=== PATIENT | female | born 1955 | race Caucasian/White ===

== ENCOUNTER 2017-04-19 10:53 | Day surgery (SDC) | payer BC ==
[~2017-04-19] VITALS: Ht 157.5 cm; Wt 84.5 kg
--- NOTE | ~2017-04-19 | OP ---
PATIENT NAME: MELISSA NARANJO MEDICAL RECORD: [id number] :57 LOCATION:D.OPS ADMISSION DATE: SURGEON: CHANTAL ESCOBAR MD DATE OF OPERATION: 04/19/2017 PREOPERATIVE DIAGNOSIS: Adhesive capsulitis of the right shoulder. POSTOPERATIVE DIAGNOSIS: Adhesive capsulitis of the right shoulder. PROCEDURE: Right shoulder manipulation. SURGEON: Chantal Escobar MD. ANESTHESIA: TIVA with supraclavicular block. INTRAOPERATIVE COMPLICATIONS: None. SUMMARY OF PATHOLOGIC FINDINGS: The patient had substantial adhesive capsulitis with good release with manipulation. OPERATIVE SUMMARY IN DETAIL: After obtaining the appropriate preoperative orthopedic surgery consent as well as anesthetic consultation, evaluation and clearance, the patient was brought to the operating room. While she stayed on her hospital [facility], TIVA anesthesia was administered, the scapula was stabilized and manipulation was carried out first in abduction followed by forward flexion, then external and internal rotation. This resulted in excellent release. Having completed this, the patient was awakened and taken to recovery room in stable condition. All final needle and sponge counts were correct. TRANSINT:[id number] Voice Confirmation ID: [id number] DOCUMENT ID: [id number] CHANTAL ESCOBAR MD CC: [id number] DICTATION DATE: 04/22/17824 DINING SERVER: 04/22/17918 [facility] 04/19/17 [id number] [place] [address]
[~2017-04-19 10:53] MED LIST: COREG 3.1253.125 MG PO; GLUCOPHAGE1000 MG PO; NORVASC10 MG PO; ZESTRIL40 MG PO
[2017-04-19 11:41] LABS: HEMATOCRIT 38.2 % (36.0-48.0); HEMOGLOBIN 12.6 g/dL (12-16); MCH 29.1 pg (26.0-34.0); MCV 88.2 fL (80.0-100.0); MEAN PLATELET VOLUME 9.7 fL (7.4-10.4); RBC 4.33 10x6/uL (4.00-5.40); WBC 6.4 10x3/uL (4.8-10.8)
[2017-04-19 11:50] LABS: ANION GAP 14.4 mmol/L (8-16); CALCIUM 8.8 mg/dL (8.5-10.1); CARBON DIOXIDE 26.7 mmol/L (21.0-32.0); POTASSIUM - SERUM 4.1 mmol/L (3.5-5.1)
[2017-04-19 13:26] VITALS: BP 167/81; Ht 157.5 cm; Wt 84.5 kg
--- NOTE | 2017-04-19 14:56 | NUR ---
PROCEEDURE ON PT CART
[2017-04-19] MEDS ORDERED: MEPERIDINE HCL50 MG PO (15:04)
--- NOTE | 2017-04-19 15:49 | NUR ---
1540 [address] [place] DIET ORDERED.
== END 2017-04-19 17:10 | disposition home or self-care (01) ==
LOC: D.OPS 10:53 → D.PAN 15:30 → D.OPS 15:30
PROVIDERS: Anesthesiology
DX: M75.01 Adhesive capsulitis of right shoulder (principal); I10 Essential (primary) hypertension; E11.9 Type 2 diabetes mellitus without complications; Z01.812 Encounter for preprocedural laboratory examination